=== PATIENT | female | born 1995 | race Hispanic/Latino ===

== ENCOUNTER 2020-10-26 07:21 | Emergency (ER) | payer OTHER ==
[~2020-10-26] VITALS: Ht 175.3 cm; Wt 83.9 kg
[2020-10-26 07:23] VITALS: BP 105/74
[2020-10-26] MEDS ORDERED: IBUP-2070 PO (08:57)
[2020-10-26] MEDS ORDERED: BENZ-17 PO (08:57)
== END 2020-10-26 09:23 | disposition home or self-care (01) ==
LOC: EDH 07:21
DX: J06.9 Acute upper respiratory infection, unspecified (principal); Z20.822 Contact with and (suspected) exposure to COVID-19
CPT/HCPCS: 87635; 87804 ×2; 87880; 99283; C9803

== ENCOUNTER 2021-05-14 13:57 | Emergency (ER) | payer MEDICAID, OTHER ==
[~2021-05-14] VITALS: Ht 170.2 cm; Wt 86.2 kg
[~2021-05-14 13:57] MED LIST: BENZ-17 PO; IBUP-2070 PO
[2021-05-14 15:52] VITALS: BP 101/70
[2021-05-14] MEDS ORDERED: GUAI-484 PO (16:14)
[2021-05-14] MEDS ORDERED: ALBU18HF7 IH (16:14)
== END 2021-05-14 16:22 | disposition home or self-care (01) ==
LOC: EDH 13:57
DX: J06.9 Acute upper respiratory infection, unspecified (principal); R09.82 Postnasal drip; Z20.822 Contact with and (suspected) exposure to COVID-19; Z79.1 Long term (current) use of non-steroidal anti-inflammatories (NSAID); Z79.899 Other long term (current) drug therapy
CPT/HCPCS: 71045; 87635; 87804 ×2; 87880; 99284; C9803